=== PATIENT | male | born 1985 | race African-American/Black ===

== ENCOUNTER 2023-09-23 12:23 | Inpatient (IN) | payer BC, OTHER, SELFPAY ==
[2023-09-23] VITALS (25 sets, daily range): BP systolic 170–241; BP diastolic 51–119; PULSE 64–118; RESP 12–35; TEMP 36.8; O2SAT 95–100
--- NOTE | ~2023-09-23 | XR_ITS ---
EXAMINATION: XR chest 2V Exam Date/Time: 09/26/2023 12:30 CLASSIFIED ADVERTISING CLERK HISTORY: pneumonia Comparison: 09/23/2023. RESULT: Lines, tubes, and devices: None. Lungs and pleura: Clear, improved left lower lobe airspace disease. Cardiomediastinal silhouette: Stable. Other: No acute osseous or upper abdominal finding. IMPRESSION: No acute cardiopulmonary process. Improved left lower lobe airspace disease. Reviewed, dictated and finalized at location K. SIFIED ADVERTISING CLERK
--- NOTE | ~2023-09-23 | XR_ITS ---
EXAMINATION: XR chest 2V DATE: 09/28/2023 08:26 INDICATION: Pneumonia. TECHNIQUE: Frontal and lateral views of the chest were obtained. COMPARISON: Chest 2 views 09/26/2023 FINDINGS: A calcified left lung nodule is consistent with old granulomatous disease. No pleural effus ion or pneumothorax. The heart size is normal. IMPRESSION: 1. No acute cardiopulmonary disease. Reviewed, dictated and finalized at location A. MANAGER
--- NOTE | ~2023-09-23 | CT_ITS ---
EXAMINATION: CT brain wo con DATE: 09/23/2023 19:12 INDICATION: hypertension, headache . TECHNIQUE: Computed tomography (CT) of the head was performed without intravenous contrast. The mA wa s adjusted according to patient size. Iterative reconstruction technique was employed. The dose-lengt h product was 605.33 mGy-cm. COMPARISON: None. FINDINGS: No acute intracranial hemorrhage or extra-axial fluid collection. No hydrocephalus, mass, or herniation. No acute ischemic infarct. Unremarkable dural venous sinus attenuation. No acute osseous abnormality. The aerated spaces are clear. IMPRESSION: No acute intracranial process. Reviewed, dictated and finalized at location K. ESSFACTORS CONSULTANT
--- NOTE | ~2023-09-23 | XR_ITS ---
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 RESULT: Lines, tubes, and devices: None. Lungs and pleura: Low volumes with crowding, particularly in the lateral view. Left lower lobe airsp jose disease, silhouetting left hemidiaphragm. Cardiomediastinal silhouette: Stable. Other: No acute osseous or upper abdominal finding. IMPRESSION: Left lower lobe airspace disease, may reflect atelectasis, pneumonia or aspiration. Reviewed, dictated and finalized at location K. ON FORMING MACHINE OPERATOR IMPRESSION: Left lower lobe airspace disease, may reflect atelectasis, pneumonia or aspirat ion.
--- NOTE | ~2023-09-23 | US_ITS ---
EXAMINATION: US renal BI DATE: 09/28/2023 12:45 INDICATION: Hypocalcemia TECHNIQUE: Multiple grayscale and Doppler ultrasound images of the kidneys were obtained. COMPARISON: None. FINDINGS: The right kidney measures 10.1 x 5.3 x 6.2 cm. The left kidney measures 12.3 x 7.2 x 4.9 cm . The kidneys demonstrate normal parenchymal echogenicity. There is no hydronephrosis. The bladder is normal. IMPRESSION: 1. Normal kidneys without hydronephrosis. Reviewed, dictated and finalized at location B. GROUND CHECK COORDINATOR
[2023-09-23 13:03] LABS: Basophils Absolute Auto 0.1 K/mm3 (0.0-0.1); Basophils Percent Auto 0.5 % (0.2-1.2); Eosinophils Absolute Auto 0.1 K/mm3 (0-0.3); Eosinophils Percent Auto 0.5 % (0-4.4); Hematocrit 39.9 % (42.0-52.0); Hemoglobin 12.7 g/dL (14.0-18.0); Immature Granulocyte Absolute 0.02 K/mm3 (0.00-0.031); Immature Granulocyte Percent A 0.2 % (0-0.5); Lymphocytes Absolute Auto 2.54 K/mm3 (0.9-3.2); Mean Corpuscular HGB Conc 31.8 g/dl (32-36); Mean Corpuscular Hemoglobin 27.9 pg (26-34); Mean Corpuscular Volume 87.7 fl (80-100); Mean Platelet Volume 10.7 fl (7.4-10.4); Monocytes Percent Auto 10.6 % (2.6-8.5); Neutrophils Absolute Auto 6.1 K/mm3 (1.3-6.7); Neutrophils Percent Auto 62.2 % (45.5-73.1); Platelet Count Result 254 k/mm3 (150-375); Red Blood Count 4.55 M/mm3 (4.6-6.20); Red Cell Distribution Width 13.2 % (11.5-14.5); White Blood Count 9.8 K/mm3 (4.5-10.0)
[2023-09-23 13:15] LABS: Alanine Aminotransferase 38 U/L (6-50); Albumin Level 4.8 g/dL (3.5-5.1); Alkaline Phosphatase 111 U/L (38-126); Anion Gap 14 mmol/L (8-16); Aspartate Amino Transferase 66 U/L (17-59); Bilirubin,Total 1.2 mg/dL (0.2-1.3); Blood Urea Nitrogen 9 mg/dL (9-20); Carbon Dioxide 31 mmol/L (22-30); Chloride 94 mmol/L (98-107); Estimated CRCL calculation 89 ml/min; Estimated Glomerular Filt Rate > 60; Glucose 111 mg/dL (65-110); Potassium 3.4 mmol/L (3.4-5.0); Sodium 139 mmol/L (137-145)
--- NOTE | 2023-09-23 15:38 | PC.NURSE ---
Pt stating my chest is locking up im paining Pt taken to triage for an EKG
--- NOTE | 2023-09-23 15:40 | ECG_ITS ---
Measurements Intervals Pitcher Rate: 113 P: 46 [place]: 130 QRS: -23 QRSD: 82 T: 61 QT: 337 QTc: 463 Interpretive Statements SINUS TACHYCARDIA WITH OCCASIONAL VENTRICULAR PREMATURE COMPLEXES POSSIBLE LEFT ATRIAL ENLARGEMENT [-0.1mV P WAVE IN V1/V2] BORDERLINE LEFT AXIS DEVIATION [QRS AXIS < -20] ABNORMAL RHYTHM ECG NO PREVIOUS ECG AVAILABLE FOR COMPARISON Electronically Signed On 09-23-2023 17:32:51 [facility] A CLASS by Radha Severino M.D.
--- NOTE | 2023-09-23 15:47 | PC.NURSE ---
pt brought back to triage for EKG, pt not sitting still and pulled EKG leads off and refused to have test done. Pt placed back in waiting room and pt immediately started yelling nurse!! NURSE!! this rn spoke with pt. Pt is hyperventilating and yelling.
--- NOTE | 2023-09-23 16:00 | PC.NURSE ---
Pt yelling Nurse! nurse! as this RN was checking in another pt. pt seen sliding down wheelchair and placing himself on the floor. Security called and pt placed back in wheelchair and brought into triage
--- NOTE | 2023-09-23 16:27 | PC.NURSE ---
Pt hooked up to EKG and will not stop moving. Pt yelling that he is in pain. after approx 15 mins EKG was completed and pt was placed in the family services room
[2023-09-23 16:54] LABS: Magnesium 1.5 mg/dL (1.6-2.3)
[2023-09-23] MEDS: MAGNESIUM SULF 1 GM/D5W 100 ML 1 GM/100 ML BAG IVPB (17:38)
--- NOTE | 2023-09-23 17:41 | ED.GENADULT ---
HPI - General Adult General Chief complaint: Unspecified <Nunu Mccain PA-C - Last Filed: 09/23/23 20:30> Stated complaint: hands cramping <ZOLTAN Samuels Last Filed: 09/23/23 20:30> Time Seen by Provider: 09/23/23 17:16 <Nunu Mccain PA-C - Last Filed: 09/23/23 20:30> Source: patient <ZOLTAN Samuels Last Filed: 09/23/23 20:30> Mode of arrival: EMS <ZOLTAN Samuels Last Filed: 09/23/23 20:30> Limitations: no limitations <ZOLTAN Samuels Last Filed: 09/23/23 20:30> History of Present Illness HPI narrative: This is a 38 year old male that presents to the ER for carpal spasms today. Reports he was recently seen at another hospital for low potassium. He was picking up his prescription at the pharmacy when he started to have spasms in his hands. They are very painful. Also reports his blood pressure is elevated and he is dehydrated. Denies fever, chest pain, shortness of breath, cough, congestion, sore throat, abdominal pain, vomiting, or dysuria. <Nunu Mccain PA-C - Last Filed: 09/23/23 20:30> Related Data Home medications: Home Medications Medication Instructions Recorded Confirmed multivit with minerals-iron 18 1 tablet PO DAILY 09/23/23 09/23/23 mg-folic ac 400 mcg-vit K 25 mcg tablet (Adults Multivitamin) <ZOLTAN Samuels Last Filed: 09/23/23 20:30> Allergies/adverse reactions: Allergies Allergy/AdvReac Type Severity Reaction Status Date / Time No Known Allergies Allergy Verified 09/23/23 16:59 <ZOLTAN Samuels Last Filed: 09/23/23 20:30> Review of Systems Review of Systems: CONSTITUTIONAL: Denies fever ENT: Denies rhinorrhea, congestion, sore throat CARDIOVASCULAR: Denies chest pain, or edema. RESPIRATORY: Denies dyspnea. GASTROINTESTINAL: Denies abdominal pain, nausea, vomiting, or diarrhea. GENITOURINARY: Denies dysuria NEUROLOGIC: Denies numbness, or weakness. PSYCHIATRIC: Reports anxiety <Nunu Mccain PA-C - Last Filed: 09/23/23 20:30> All systems reviewed & are unremarkable except as noted in HPI and below <Nunu Mccain PA-C - Last Filed: 09/23/23 20:30> PMFSH Past Medical History Medical History: Medical History (Updated 09/24/23 @ 02:47 by Alva Tate MD) History of hypokalemia <Nunu Mccain PA-C - Last Filed: 09/23/23 20:30> Family History Family History: Family History (Updated 09/23/23 @ 21:49 by Olive Ruth RN) Mother Cancer <Nunu Mccain PA-C - Last Filed: 09/23/23 20:30> Social History Social History: Social History (Updated 09/23/23 @ 17:45 by Nunu Mccain PA-C) Alcohol intake: never Substance use: never Substance use type: does not use Lack of Transportation: No Lack of Food: Never True Current Housing: I Have Housing Concerned About Future Housing: No Difficulty Paying Gas/Electric Bills: No Difficulty Paying for Meds: No Currently Unemployed: No Education: Trade/Vocational Certificate Difficulty w/ Childcare or Family Care: No Spiritual care concerns: No <Nunu Mccain PA-C - Last Filed: 09/23/23 20:30> Exam Narrative: GENERAL: Well-appearing, well-nourished, and in no acute distress. HEAD: Normocephalic, atraumatic. EYES: PERRLA and EOMI. ENT: Nares clear, no rhinorrhea or epistaxis. Mucous membranes moist. Oropharynx without tonsillar hypertrophy exudate or other lesions. Bilateral TMs pearly hernandez non-bulging NECK: Supple. No adenopathy or masses. No JVD CHEST: Clear to auscultation. No respiratory distress. No wheezes rales or rhonchi HEART: Regular rate and rhythm. No murmur heard. Normal peripheral pulses. ABDOMEN: Soft, nontender, nondistended, normal active bowel sounds. EXTREMITIES: Spasms of the bilateral hands. No edema. SKIN: Warm, dry, no rash. NEURO: No focal deficits. Alert and oriented x3. PSYCH: Normal mood and affect <IMTIAZ Samuels-
[2023-09-23] MEDS: diazePAM INJ (*CRX) 10 MG/2 ML SYRINGE 5 MG IV PUSH (17:45)
[2023-09-23] MEDS: SODIUM CHLORIDE 0.9% IV 1,000 ML 999 ML IV CONT (17:45)
[2023-09-23] MEDS: ACETAMINOPHEN 500 MG TABLET 1000 MG PO (17:52)
[2023-09-23 18:12] LABS: Creatine Kinase 2579 U/L (55-170)
[2023-09-23 18:34] LABS: Influenza A QL RT-PCR Negative (Negative); Influenza B QL RT-PCR Negative (Negative); RSV RNA, RT-PCR Negative (Negative); SARS-CoV-2 RNA PCR Negative (Negative)
--- NOTE | 2023-09-23 19:12 | PC.NURSE ---
Assumed care of pt from RAJENDRA Posadas at this time.
[2023-09-23 19:37] LABS: Amphetamine Screen Urine Negative (Negative); Barbiturate Screen Urine Negative (Negative); Benzodiazepines Screen Urine Negative (Negative); Cannabinoid Screen Urine Negative (Negative); Cocaine Screen Urine Negative (Negative); Methadone Screen Urine Negative (Negative); Opiate Screen Urine Negative (Negative); Phencyclidine Screen Urine Negative (Negative)
[2023-09-23] MEDS: CALCIUM GLUC 1,000 MG/NS 50 ML 1,000 MG/50 ML BAG 100 MG IVPB (19:48)
[2023-09-23 20:01] LABS: Appearance Urine Clear (Clear); Bilirubin Urine Negative (Negative); Blood Urine 2+ (Negative); Color Urine Yellow (Yellow); Glucose Urine UA Negative (Negative); Ketones Urine Negative (Negative); Leukocyte Esterase Ur Negative LEU/UL (Negative); Nitrate Urine Negative (Negative); Protein Urine 1+ mg/dL (Negative); Urobilinogen Urine 0.2 mg/dL (<2.0)
[2023-09-23 20:07] LABS: Bacteria Urine None Seen /hpf; Non Pathogenic Casts 0-2; RBC Urine 0-2 /hpf (0-2); Specific Grav Ur 1.009 (1.001-1.035); Squamous Epithelial Cell Urine None seen /hpf (Few); WBC Urine 0-5 /hpf
[2023-09-23 20:12] LABS: Add Urine Microscopic? YES
--- NOTE | 2023-09-23 20:49 | PM.IMHP ---
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 A chest x-ray showed infiltrates EXAMINATION:? XR chest 2V Exam Date/Time:? 09/23/2023 17:58 CLIENT RELATIONS REPRESENTATIVE HISTORY: hypertension, postictal ? Comparison:? None. RESULT: Lines, tubes, and devices:? None. Lungs and pleura:? Low volumes with crowding, particularly in the lateral view. Left lower lobe airspace disease, silhouetting left hemidiaphragm. Cardiomediastinal silhouette:? Stable. Other:? No acute osseous or upper abdominal finding. ? IMPRESSION: Left lower lobe airspace disease, may reflect atelectasis, pneumonia or aspiration. EXAMINATION: CT brain wo con DATE: 09/23/2023 19:12 INDICATION: hypertension, headache . TECHNIQUE: Computed tomography (CT) of the head was performed without intravenous contrast. The mA was adjusted according to patient size. Iterative reconstruction technique was employed. The dose-length product was 605.33 mGy-cm. COMPARISON: None. FINDINGS: No acute intracranial hemorrhage or extra-axial fluid collection. No hydrocephalus, mass, or herniation. No acute ischemic infarct. Unremarkable dural venous sinus attenuation. No acute osseous abnormality. The? aerated spaces are clear. IMPRESSION:? No acute intracranial process. Review of Systems Review of Systems: Bilateral upper extremity the russell forearm and wrist Constitutional: Constitutional: Denies chills, Denies fever(s), Denies malaise, Denies night sweats, Denies poor appetite and Denies weakness Eyes: Eyes: Denies change in vision ENT: Denies dysphagia and Denies odynophagia Cardiovascular: Cardiovascular: Denies chest pain, Denies radiating jaw, neck or arm pain and Denies palpitations Respiratory: Respiratory: Denies chest congestion, Denies cough and Denies dyspnea Gastrointestinal: Gastrointestinal: Denies abdominal pain, Denies diarrhea, Denies nausea and Denies vomiting Genitourinary: Genitourinary: Denies dysuria Musculoskeletal: Musculoskeletal: Reports muscle cramps Integumentary/Breasts: Skin/Breast: Denies rash Neurologic: Denies focal weakness and Denies Sensory deficit (Neuro) Psychiatric: Psychiatric: Reports no additional psychiatric complaints and Reports as per HPI Endocrine: Endocrine: Denies cold intolerance, Denies fatigue, Denies flushing, Denies heat intolerance, Denies polyphagia, Denies polydipsia and Denies palpitations Hematologic/Lymphatic: Hematologic/Lymphatic: Reports no additional hematologic/lymphatic complaints and Reports as per HPI Allergic/Immunologic: Allergic/Immunologic: Reports no additional allergic/immunologic complaints and Reports as per HPI PMFSH Past Medical History Medical History (Updated 09/24/23 @ 02:47 by Alva Tate MD) History of hypokalemia Family History Family History (Updated 09/23/23 @ 21:49 by Olive Ruth RN) Mother Cancer Social History Social History (Updated 09/23/23 @ 17:45 by Nunu Mccain PA-C) Alcohol intake: never Substance use: never Substance use type: does not use Lack of Transportation: No Lack of Food: Never True Current Housing: I Have Housing Concerned About Future Housing: No Difficulty Paying Gas/Electric Bills: No Difficulty Paying for Meds: No Currently Unemployed: No Education: Trade/Vocational Certificate Difficulty w/ Childcare or Fami
--- NOTE | 2023-09-23 21:39 | ADMGEN ---
This patient, Connie Crocker, was admitted to Medical Room 252-. Patient/family oriented to hospital policies and general routines including ID bracelet, bed and alarms, visiting hours, pain management, procedures, bathroom and other care routines, personal items, smoking policy, room service/diet, and visiting hours. Information on how to activate the Rapid Response Team has been discussed. Patient/Family are encouraged to report perceived risks to care and to ask questions if they do not understand what they are told or what they should do.
[2023-09-23] MEDS: SODIUM CHLORIDE 0.9% IV 1,000 ML 125 ML IV CONT (22:06)
[2023-09-24] VITALS (12 sets, daily range): BP systolic 162–175; BP diastolic 53–98; PULSE 45–78; RESP 14–18; TEMP 36.4–37.1; O2SAT 98–100
[2023-09-24] MEDS: cefTRIAXone 2 GM/NS 100 ML 2 GM/100 ML BAG IVPB (03:31)
[2023-09-24] MEDS: AZITHROMYCIN 500 MG/NS 250 ML 500 MG/250 ML BAG 250 MG IVPB (04:23)
[2023-09-24] MEDS: ACETAMINOPHEN 500 MG TABLET 1000 MG PO (04:26)
[2023-09-24 06:34] LABS: Basophils Percent Auto 0.3 % (0.2-1.2); Eosinophils Absolute Auto 0.1 K/mm3 (0-0.3); Eosinophils Percent Auto 0.5 % (0-4.4); Hematocrit 41.2 % (42.0-52.0); Hemoglobin 13.1 g/dL (14.0-18.0); Immature Granulocyte Absolute 0.02 K/mm3 (0.00-0.031); Immature Granulocyte Percent A 0.2 % (0-0.5); Lymphocytes Absolute Auto 2.06 K/mm3 (0.9-3.2); Mean Corpuscular HGB Conc 31.8 g/dl (32-36); Mean Corpuscular Hemoglobin 27.9 pg (26-34); Mean Corpuscular Volume 87.7 fl (80-100); Mean Platelet Volume 11.4 fl (7.4-10.4); Monocytes Absolute Auto 0.6 K/mm3 (0.1-0.6); Monocytes Percent Auto 5.9 % (2.6-8.5); Neutrophils Absolute Auto 7.1 K/mm3 (1.3-6.7); Neutrophils Percent Auto 72.1 % (45.5-73.1); Platelet Count Result 230 k/mm3 (150-375); Red Cell Distribution Width 13.1 % (11.5-14.5); White Blood Count 9.8 K/mm3 (4.5-10.0)
[2023-09-24 06:51] LABS: Alanine Aminotransferase 75 U/L (6-50); Albumin Level 4.7 g/dL (3.5-5.1); Alkaline Phosphatase 122 U/L (38-126); Anion Gap 10 mmol/L (8-16); Aspartate Amino Transferase 380 U/L (17-59); Bilirubin,Total 1.5 mg/dL (0.2-1.3); Blood Urea Nitrogen 9 mg/dL (9-20); Carbon Dioxide 33 mmol/L (22-30); Chloride 101 mmol/L (98-107); Estimated CRCL calculation 106 ml/min; Estimated Glomerular Filt Rate > 60; Glucose 83 mg/dL (65-110); Magnesium 1.4 mg/dL (1.6-2.3); Phosphorus 4.3 mg/dL (2.5-4.5); Potassium 2.9 mmol/L (3.4-5.0); Sodium 144 mmol/L (137-145)
[2023-09-24] MEDS: SODIUM CHLORIDE 0.9% IV 1,000 ML 125 ML IV CONT ×2 (07:15→20:45)
[2023-09-24] MEDS: MAGNESIUM SULF 4 GM/WATER100ML 4 GM/100 ML BAG IVPB (09:13)
[2023-09-24] MEDS: POTASSIUM CHLORIDE INJ 40 MEQ in SODIUM CHLORIDE 0.9% IV 500 ML 130 MEQ IVPB (10:22)
--- NOTE | 2023-09-24 10:55 | PC.NURSE ---
On 09/24/23, the student, [Negin Brush], provided care and completed [facility] documentation on this patient. I have reviewed the student's documentation and agree with the findings.
[2023-09-24 14:02] LABS: Creatine Kinase 15703 U/L (55-170)
[2023-09-24] MEDS: METOPROLOL TARTRATE 50 MG TAB PO (14:58)
--- NOTE | 2023-09-24 16:56 | PM.IMPN ---
Progress Note: A&P Assessment and Plan (1) Lung infiltrate: Code(s): R91.8 - Other nonspecific abnormal finding of lung field Status: Acute (2) Rhabdomyolysis: Qualifiers: Rhabdomyolysis type: non-traumatic Qualified Code(s): M62.82 - Rhabdomyolysis Code(s): M62.82 - Rhabdomyolysis Status: Acute (3) Hypocalcemia: Code(s): E83.51 - Hypocalcemia Status: Acute (4) Hypomagnesemia: Code(s): E83.42 - Hypomagnesemia Status: Acute (5) Hypertension: Qualifiers: Hypertension type: unspecified Qualified Code(s): I10 - Essential (primary) hypertension Code(s): I10 - Essential (primary) hypertension Status: Acute (6) Electrolyte imbalance: Code(s): E87.8 - Other disorders of electrolyte and fluid balance, not elsewhere classified Status: Acute Plan Continue with current medications Continue with IV hydration with normal saline at 125 cc/hour Strict input and output monitoring Renal function slowly improving with IV hydration Patient's CK level jumped from 2579 to 23871! Monitor CK level closely Patient has the myoglobin urea showing up as false hematuria on urine analysis His liver functions are slowly uptrending as well Aggressive electrolyte replacement ordered for hypomagnesemia and hypokalemia Consider Nephrology and GI consultations in am if his enzymes failed to down trend Continue with IV antibiotics for pneumonia Follow-up on blood and sputum cultures ? Patient seen and examined at bedside during my morning rounds ? Collaborated with patient's nurse at the bedside in detail and addressed all concerns ? Labs, electrolytes, radiology, investigations and test results reviewed ? Consult/Nursing/Ancilliary notes on the chart reviewed and appreciated ? Spoke with patient/family at the bedside and answered all the questions that they had Repeat labs in a.m. Electrolyte replacement as per protocol. Patient will be monitored very closely on the floor. Further recommendations as per the hospital course. Time Spent With Patient Time with patient: 25 - 35 minutes Subjective Date/time seen: 09/24/23 16:56 Interval history: Patient seen and evaluated at bedside. Still feels tired and fatigued. Complains of muscular pains in his upper and lower extremities. Review of Systems Review of Systems: 14 systems were reviewed with pertinent positives and negatives per HPI. Except as documented in the HPI/progress notes, all other systems were reviewed and are negative. Exam Narrative: PHYSICAL EXAMINATION: Vital signs: Please see the chart General physical exam: Patient lying in bed, appears to be tired and fatigued, complains of generalized muscle pains Head/eyes: Atraumatic, EOMI, PERRLA ENT: Moist mucous membranes, nasal passages clear Neck: Supple, full range of motion, trachea midline CVS: S1 + S2, regular rate and rhythm, no murmurs Respiratory: Bilaterally fair air entry in both lung tabares, mild B/L crackles, symmetric chest expansion, no distress Abdomen: Soft, non-tender, bowel sounds +ve, no organomegaly Extremities: No clubbing, no cyanosis, no edema, no calf tenderness Musculoskeletal: Moves all, adequate range of motion, generalized mild-moderate muscle tenderness, + mild muscle spasms Skin: Warm, dry, no jaundice, no cyanosis Neurological: Awake, alert, oriented x 3, cranial nerves II-XII intact, no focal neurological deficits Psychiatric: Normal mood, non suicidal Objective Data Vital Signs Vital Signs: Vital Signs - 24 hr 09/23/23 16:59 09/23/23 17:01 09/23/23 17:01 Temperature Pulse Rate 99 100 Respiratory Rate 26 H 30 H Blood Pressure 194/119 H 194/119 H Pulse Oximetry 98 Oxygen Delivery 09/23/23 17:02 09/23/23 17:15 09/23/23 17:18 Temperature Pulse Rate 100 102 H 114 H Respiratory Rate 32 H 31 H 35 H Blood Pressure 212/96 H Pulse Oximetry Oxygen Delivery
[2023-09-24] MEDS: POTASSIUM CHLORIDE 20 MEQ ER TABLET 40 MEQ PO (17:34)
[2023-09-25] VITALS (11 sets, daily range): BP systolic 150–163; BP diastolic 90–97; PULSE 51–70; RESP 16–18; TEMP 36.5–36.8; O2SAT 100
[2023-09-25] MEDS: cefTRIAXone 2 GM/NS 100 ML 2 GM/100 ML BAG IVPB (04:48)
[2023-09-25] MEDS: AZITHROMYCIN 500 MG/NS 250 ML 500 MG/250 ML BAG 250 MG IVPB (05:22)
[2023-09-25] MEDS: SODIUM CHLORIDE 0.9% IV 1,000 ML 125 ML IV CONT ×2 (05:23→22:17)
[2023-09-25 05:56] LABS: Basophils Absolute Auto 0.1 K/mm3 (0.0-0.1); Basophils Percent Auto 0.8 % (0.2-1.2); Eosinophils Absolute Auto 0.1 K/mm3 (0-0.3); Eosinophils Percent Auto 2.1 % (0-4.4); Hematocrit 39.8 % (42.0-52.0); Hemoglobin 12.5 g/dL (14.0-18.0); Immature Granulocyte Absolute 0.02 K/mm3 (0.00-0.031); Immature Granulocyte Percent A 0.3 % (0-0.5); Lymphocytes Absolute Auto 1.93 K/mm3 (0.9-3.2); Lymphocytes Percent Auto 31.9 % (18.3-44.2); Mean Corpuscular HGB Conc 31.4 g/dl (32-36); Mean Corpuscular Hemoglobin 27.7 pg (26-34); Mean Corpuscular Volume 88.1 fl (80-100); Monocytes Absolute Auto 0.6 K/mm3 (0.1-0.6); Monocytes Percent Auto 9.6 % (2.6-8.5); Neutrophils Absolute Auto 3.3 K/mm3 (1.3-6.7); Neutrophils Percent Auto 55.3 % (45.5-73.1); Platelet Count Result 230 k/mm3 (150-375); Red Blood Count 4.52 M/mm3 (4.6-6.20); Red Cell Distribution Width 13.2 % (11.5-14.5); White Blood Count 6.1 K/mm3 (4.5-10.0)
[2023-09-25 06:27] LABS: Alanine Aminotransferase 87 U/L (6-50); Albumin Level 4.3 g/dL (3.5-5.1); Alkaline Phosphatase 108 U/L (38-126); Anion Gap 10 mmol/L (8-16); Aspartate Amino Transferase 288 U/L (17-59); Bilirubin,Total 1.3 mg/dL (0.2-1.3); Blood Urea Nitrogen 9 mg/dL (9-20); Carbon Dioxide 31 mmol/L (22-30); Chloride 103 mmol/L (98-107); Estimated CRCL calculation 117 ml/min; Estimated Glomerular Filt Rate > 60; Glucose 80 mg/dL (65-110); Magnesium 1.5 mg/dL (1.6-2.3); Phosphorus 4.3 mg/dL (2.5-4.5); Potassium 2.9 mmol/L (3.4-5.0); Sodium 144 mmol/L (137-145)
[2023-09-25 07:00] LABS: Creatine Kinase 14531 U/L (55-170)
[2023-09-25] MEDS: MAGNESIUM SULF 4 GM/WATER100ML 4 GM/100 ML BAG IVPB (08:14)
[2023-09-25] MEDS: MAGNESIUM OXIDE 400 MG TABLET PO ×2 (08:15→17:18)
[2023-09-25] MEDS: POTASSIUM CHLORIDE 20 MEQ ER TABLET 40 MEQ PO ×2 (08:15→17:18)
[2023-09-25] MEDS: POTASSIUM CHLORIDE INJ 40 MEQ in SODIUM CHLORIDE 0.9% IV 500 ML 130 MEQ IVPB (09:38)
--- NOTE | 2023-09-25 11:11 | PM.IMPN ---
Progress Note: A&P Assessment and Plan (1) Lung infiltrate: Code(s): R91.8 - Other nonspecific abnormal finding of lung field Status: Acute (2) Rhabdomyolysis: Qualifiers: Rhabdomyolysis type: non-traumatic Qualified Code(s): M62.82 - Rhabdomyolysis Code(s): M62.82 - Rhabdomyolysis Status: Acute (3) Hypocalcemia: Code(s): E83.51 - Hypocalcemia Status: Acute (4) Hypomagnesemia: Code(s): E83.42 - Hypomagnesemia Status: Acute (5) Hypertension: Qualifiers: Hypertension type: unspecified Qualified Code(s): I10 - Essential (primary) hypertension Code(s): I10 - Essential (primary) hypertension Status: Acute (6) Electrolyte imbalance: Code(s): E87.8 - Other disorders of electrolyte and fluid balance, not elsewhere classified Status: Acute Plan Continue with current medications Continue with IV hydration with normal saline at 125 cc/hour Strict input and output monitoring Renal function slowly improving with IV hydration Patient's [place] started [place] [address] to [address] today! Monitor CK level closely Patient has the myoglobinurea showing up as false hematuria on urine analysis His liver functions are starting to downtrend as well Aggressive electrolyte replacement ordered for hypomagnesemia and hypokalemia which were low at the 1.5 and 2.9 today respectively Continue with IV antibiotics for pneumonia in the form of IV Rocephin and Zithromax ... Day#2 Follow-up on blood and sputum cultures ? Patient seen and examined at bedside during my morning rounds ? Collaborated with patient's nurse at the bedside in detail and addressed all concerns ? Labs, electrolytes, radiology, investigations and test results reviewed ? Consult/Nursing/Ancilliary notes on the chart reviewed and appreciated ? Spoke with patient/family at the bedside and answered all the questions that they had Repeat labs in a.m. Electrolyte replacement as per protocol. Patient will be monitored very closely on the floor. Further recommendations as per the hospital course. I am signing off. Patient's medical care will be taken over by my covering hospitalist attending in am. Subjective Date/time seen: 09/25/23 11:11 Interval history: Patient sitting on side of bed during my morning rounds having had formed in place. He is feeling a little better. Still complains of aches and pains in his muscles, but he has now started using hands more freely now. Review of Systems Review of Systems: 14 systems were reviewed with pertinent positives and negatives per HPI. Except as documented in the HPI/progress notes, all other systems were reviewed and are negative. Exam Narrative: PHYSICAL EXAMINATION: Vital signs: Please see the chart General physical exam: Patient lying in bed, appears to be tired and fatigued, complains of generalized muscle pains Head/eyes: Atraumatic, EOMI, PERRLA ENT: Moist mucous membranes, nasal passages clear Neck: Supple, full range of motion, trachea midline CVS: S1 + S2, regular rate and rhythm, no murmurs Respiratory: Bilaterally fair air entry in both lung tabares, mild B/L crackles, symmetric chest expansion, no distress Abdomen: Soft, non-tender, bowel sounds +ve, no organomegaly Extremities: No clubbing, no cyanosis, no edema, no calf tenderness Musculoskeletal: Moves all, adequate range of motion, generalized mild-moderate muscle tenderness, + mild muscle spasms Skin: Warm, dry, no jaundice, no cyanosis Neurological: Awake, alert, oriented x 3, cranial nerves II-XII intact, no focal neurological deficits Psychiatric: Normal mood, non suicidal Objective Data Vital Signs Vital Signs: Vital Signs - 24 hr 09/24/23 12:04 09/24/23 14:17 09/24/23 14:58 Temperature 37.1 C Pulse Rate 78 68 72 Respiratory Rate 16 Blood Pressure 175/53 H Pulse Oximetry 98 Oxygen Delivery 09/24/23 16:00 09/24/23 22:00
--- NOTE | 2023-09-25 11:44 | PC.NURSE ---
Contacted Montserrat Gomes regarding concerns patient has. Montserrat to come speak with patient
[2023-09-26] VITALS (13 sets, daily range): BP systolic 152–170; BP diastolic 90–98; PULSE 53–92; RESP 17–18; TEMP 36.4–36.9; O2SAT 100
[2023-09-26] MEDS: cefTRIAXone 2 GM/NS 100 ML 2 GM/100 ML BAG IVPB (03:02)
[2023-09-26] MEDS: AZITHROMYCIN 500 MG/NS 250 ML 500 MG/250 ML BAG 250 MG IVPB (03:32)
[2023-09-26 05:49] LABS: Basophils Absolute Auto 0.1 K/mm3 (0.0-0.1); Basophils Percent Auto 0.8 % (0.2-1.2); Eosinophils Absolute Auto 0.1 K/mm3 (0-0.3); Hematocrit 41.2 % (42.0-52.0); Hemoglobin 12.9 g/dL (14.0-18.0); Immature Granulocyte Absolute 0.01 K/mm3 (0.00-0.031); Immature Granulocyte Percent A 0.2 % (0-0.5); Lymphocytes Absolute Auto 1.77 K/mm3 (0.9-3.2); Lymphocytes Percent Auto 27.6 % (18.3-44.2); Mean Corpuscular HGB Conc 31.3 g/dl (32-36); Mean Corpuscular Hemoglobin 27.7 pg (26-34); Mean Corpuscular Volume 88.4 fl (80-100); Mean Platelet Volume 10.8 fl (7.4-10.4); Monocytes Absolute Auto 0.6 K/mm3 (0.1-0.6); Monocytes Percent Auto 8.9 % (2.6-8.5); Neutrophils Absolute Auto 3.9 K/mm3 (1.3-6.7); Neutrophils Percent Auto 60.5 % (45.5-73.1); Platelet Count Result 223 k/mm3 (150-375); Red Blood Count 4.66 M/mm3 (4.6-6.20); White Blood Count 6.4 K/mm3 (4.5-10.0)
[2023-09-26 06:44] LABS: Alanine Aminotransferase 83 U/L (6-50); Albumin Level 4.1 g/dL (3.5-5.1); Alkaline Phosphatase 109 U/L (38-126); Anion Gap 9 mmol/L (8-16); Aspartate Amino Transferase 173 U/L (17-59); Blood Urea Nitrogen 8 mg/dL (9-20); Calcium 6.4 mg/dL (8.4-10.2); Carbon Dioxide 30 mmol/L (22-30); Chloride 104 mmol/L (98-107); Estimated CRCL calculation 117 ml/min; Estimated Glomerular Filt Rate > 60; Glucose 87 mg/dL (65-110); Magnesium 1.4 mg/dL (1.6-2.3); Sodium 143 mmol/L (137-145)
[2023-09-26] MEDS: SODIUM CHLORIDE 0.9% IV 1,000 ML 125 ML IV CONT (08:39)
[2023-09-26] MEDS: MAGNESIUM OXIDE 400 MG TABLET PO ×2 (08:40→17:27)
[2023-09-26] MEDS: POTASSIUM CHLORIDE 20 MEQ ER TABLET 40 MEQ PO ×2 (08:40→12:14)
--- NOTE | 2023-09-26 08:40 | PC.NURSE ---
Spoke with Markie in pharmacy to let him know I am unable to place order for IVPB potassium per Dr. Gerard. When attempting to order it, will not let me order correct dose. Markie let me know that it is probably because patient has already been given same medication recently, would like me to place pharmacy communication so that he can order it on his end.
[2023-09-26 08:51] LABS: Creatine Kinase 8990 U/L (55-170)
[2023-09-26] MEDS: MAGNESIUM SULF 2 GM/WATER 50ML 2 GM/50 ML BAG IVPB (10:38)
--- NOTE | 2023-09-26 12:03 | PM.IMPN ---
Progress Note: A&P Assessment and Plan (1) Lung infiltrate: Code(s): R91.8 - Other nonspecific abnormal finding of lung field Status: Acute Assessment and Plan: Continue with IV antibiotics. Repeat chest x-ray. Monitor blood culture. (2) Rhabdomyolysis: Qualifiers: Rhabdomyolysis type: non-traumatic Qualified Code(s): M62.82 - Rhabdomyolysis Code(s): M62.82 - Rhabdomyolysis Status: Acute Assessment and Plan: CPK improving, continue current treatment. (3) Hypocalcemia: Code(s): E83.51 - Hypocalcemia Status: Acute Assessment and Plan: Better , monitor closely. (4) Hypomagnesemia: Code(s): E83.42 - Hypomagnesemia Status: Acute Assessment and Plan: Replace and monitor. (5) Hypertension: Qualifiers: Hypertension type: unspecified Qualified Code(s): I10 - Essential (primary) hypertension Code(s): I10 - Essential (primary) hypertension Status: Acute Assessment and Plan: Stable (6) Electrolyte imbalance: Code(s): E87.8 - Other disorders of electrolyte and fluid balance, not elsewhere classified Status: Acute Assessment and Plan: Getting better and monitor closely. Plan Continue with current medications Continue with IV hydration with normal saline at 125 cc/hour Strict input and output monitoring Renal function slowly improving with IV hydration Patient[place] [address] [place] [address] today! Monitor CK level closely Patient has the myoglobinuria showing up as false hematuria on urine analysis Repeat labs in a.m. Electrolyte replacement as per protocol. Patient will be monitored very closely on the floor. Further recommendations as per the hospital course. Subjective Date/time seen: 09/26/23 12:03 Interval history: Patient was seen during the morning rounds today. Patient breathing is better. Decreased shortness of breath. No chest pain. No abdominal pain. No nausea no vomiting. Mood stable. Review of Systems Review of Systems: 14 systems were reviewed with pertinent positives and negatives per HPI. Except as documented in the HPI/progress notes, all other systems were reviewed and are negative. Constitutional: Constitutional: Denies chills, Denies fatigue, Denies fever(s), Denies malaise, Denies night sweats, Denies poor appetite and Denies weakness Eyes: Eyes: Denies change in vision ENT: Denies dysphagia and Denies odynophagia Cardiovascular: Cardiovascular: Denies chest pain, Denies radiating jaw, neck or arm pain, Denies palpitations and Denies dyspnea Respiratory: Respiratory: Denies chest congestion, Denies cough and Denies dyspnea Gastrointestinal: Gastrointestinal: Denies abdominal pain, Denies dysphagia, Denies diarrhea, Denies nausea, Denies odynophagia and Denies vomiting Genitourinary: Genitourinary: Denies dysuria Musculoskeletal: Musculoskeletal: Reports muscle cramps Integumentary/Breasts: Skin/Breast: Denies rash Neurologic: Denies focal weakness, Denies Sensory deficit (Neuro) and Denies weakness Psychiatric: Psychiatric: Reports no additional psychiatric complaints and Reports as per HPI Endocrine: Endocrine: Denies cold intolerance, Denies fatigue, Denies flushing, Denies heat intolerance, Denies polyphagia, Denies polydipsia and Denies palpitations Hematologic/Lymphatic: Hematologic/Lymphatic: Reports no additional hematologic/lymphatic complaints and Reports as per HPI Allergic/Immunologic: Allergic/Immunologic: Reports no additional allergic/immunologic complaints and Reports as per HPI Exam Narrative: PHYSICAL EXAMINATION: Vital signs: Please see the chart General physical exam: Patient lying in bed, appears to be tired and fatigued, complains of generalized muscle pains Head/eyes: Atraumatic, EOMI, PERRLA ENT: Moist mucous membranes, nasal passages clear Neck: Supple, full range of motion, trachea
[2023-09-26] MEDS: POTASSIUM CHLORIDE INJ 40 MEQ in SODIUM CHLORIDE 0.9% IV 500 ML 130 MEQ IVPB (12:14)
[2023-09-26] MEDS: hydrALAZINE HCL 20 MG/ML VIAL 10 MG IV PUSH (14:54)
--- NOTE | 2023-09-26 17:15 | PC.NURSE ---
Patient had timed potassium to be drawn at 1630. Has not yet been drawn. Sales Clerk [employer] states she is coming up to draw it soon
[2023-09-26] MEDS: LOSARTAN POTASSIUM 50 MG TABLET PO (17:27)
--- NOTE | 2023-09-26 18:34 | PC.NURSE ---
Called log brander again and did not get an answer regarding potassium.
[2023-09-26 19:06] LABS: Potassium 3.2 mmol/L (3.4-5.0)
[2023-09-27] VITALS (10 sets, daily range): BP systolic 144–164; BP diastolic 85–94; PULSE 56–81; RESP 13–18; TEMP 36.3–36.7; O2SAT 99–100
[2023-09-27] MEDS: CYCLOBENZAPRINE HCL 10 MG TABLET PO
[2023-09-27] MEDS: cefTRIAXone 2 GM/NS 100 ML 2 GM/100 ML BAG IVPB (05:29)
[2023-09-27] MEDS: AZITHROMYCIN 500 MG/NS 250 ML 500 MG/250 ML BAG 250 MG IVPB (06:00)
[2023-09-27 06:06] LABS: Basophils Absolute Auto 0.1 K/mm3 (0.0-0.1); Basophils Percent Auto 0.9 % (0.2-1.2); Eosinophils Absolute Auto 0.2 K/mm3 (0-0.3); Eosinophils Percent Auto 2.4 % (0-4.4); Hematocrit 42.2 % (42.0-52.0); Hemoglobin 13.7 g/dL (14.0-18.0); Immature Granulocyte Absolute 0.02 K/mm3 (0.00-0.031); Immature Granulocyte Percent A 0.3 % (0-0.5); Lymphocytes Percent Auto 34.5 % (18.3-44.2); Mean Corpuscular HGB Conc 32.5 g/dl (32-36); Mean Corpuscular Hemoglobin 28.2 pg (26-34); Mean Platelet Volume 10.8 fl (7.4-10.4); Monocytes Absolute Auto 0.5 K/mm3 (0.1-0.6); Monocytes Percent Auto 7.1 % (2.6-8.5); Neutrophils Absolute Auto 3.5 K/mm3 (1.3-6.7); Neutrophils Percent Auto 54.8 % (45.5-73.1); Platelet Count Result 252 k/mm3 (150-375); Red Blood Count 4.85 M/mm3 (4.6-6.20); Red Cell Distribution Width 12.7 % (11.5-14.5); White Blood Count 6.4 K/mm3 (4.5-10.0)
[2023-09-27 07:12] LABS: Alanine Aminotransferase 82 U/L (6-50); Albumin Level 4.5 g/dL (3.5-5.1); Alkaline Phosphatase 112 U/L (38-126); Anion Gap 8 mmol/L (8-16); Aspartate Amino Transferase 116 U/L (17-59); Bilirubin,Total 1.2 mg/dL (0.2-1.3); Blood Urea Nitrogen 8 mg/dL (9-20); Calcium 6.6 mg/dL (8.4-10.2); Carbon Dioxide 31 mmol/L (22-30); Chloride 104 mmol/L (98-107); Creatine Kinase 4984 U/L (55-170); Estimated CRCL calculation 130 ml/min; Estimated Glomerular Filt Rate > 60; Glucose 88 mg/dL (65-110); Magnesium 1.3 mg/dL (1.6-2.3); Sodium 143 mmol/L (137-145)
--- NOTE | 2023-09-27 09:35 | PM.IMPN ---
Progress Note: A&P Assessment and Plan (1) Lung infiltrate: Code(s): R91.8 - Other nonspecific abnormal finding of lung field Status: Acute Assessment and Plan: Continue with IV antibiotics. Repeat chest x-ray. Monitor blood culture. (2) Rhabdomyolysis: Qualifiers: Rhabdomyolysis type: non-traumatic Qualified Code(s): M62.82 - Rhabdomyolysis Code(s): M62.82 - Rhabdomyolysis Status: Acute Assessment and Plan: CPK improving, continue current treatment. (3) Hypocalcemia: Code(s): E83.51 - Hypocalcemia Status: Acute Assessment and Plan: Better , monitor closely. (4) Hypomagnesemia: Code(s): E83.42 - Hypomagnesemia Status: Acute Assessment and Plan: Replace and monitor. (5) Hypertension: Qualifiers: Hypertension type: unspecified Qualified Code(s): I10 - Essential (primary) hypertension Code(s): I10 - Essential (primary) hypertension Status: Acute Assessment and Plan: Stable (6) Electrolyte imbalance: Code(s): E87.8 - Other disorders of electrolyte and fluid balance, not elsewhere classified Status: Acute Assessment and Plan: Getting better and monitor closely. Plan Continue with current medications Continue with IV hydration with normal saline at 125 cc/hour Strict input and output monitoring Renal function slowly improving with IV hydration [place] [address] [place] [address] today! Monitor CK level closely Patient has the myoglobinuria showing up as false hematuria on urine analysis Repeat labs in a.m. Electrolyte replacement as per protocol. Patient will be monitored very closely on the floor. Further recommendations as per the hospital course. Subjective Date/time seen: 09/27/23 09:35 Interval history: Patient was seen during the morning rounds today. No new overnight complaints. Patient breathing is better. Decreased shortness of breath. No chest pain. No abdominal pain. No nausea no vomiting. Mood stable. Review of Systems Review of Systems: 14 systems were reviewed with pertinent positives and negatives per HPI. Except as documented in the HPI/progress notes, all other systems were reviewed and are negative. Constitutional: Constitutional: Denies chills, Denies fatigue, Denies fever(s), Denies malaise, Denies night sweats, Denies poor appetite and Denies weakness Eyes: Eyes: Denies change in vision ENT: Denies dysphagia and Denies odynophagia Cardiovascular: Cardiovascular: Denies chest pain, Denies radiating jaw, neck or arm pain, Denies palpitations and Denies dyspnea Respiratory: Respiratory: Denies chest congestion, Denies cough and Denies dyspnea Gastrointestinal: Gastrointestinal: Denies abdominal pain, Denies dysphagia, Denies diarrhea, Denies nausea, Denies odynophagia and Denies vomiting Genitourinary: Genitourinary: Denies dysuria Musculoskeletal: Musculoskeletal: Reports muscle cramps Integumentary/Breasts: Skin/Breast: Denies rash Neurologic: Denies focal weakness, Denies Sensory deficit (Neuro) and Denies weakness Psychiatric: Psychiatric: Reports no additional psychiatric complaints and Reports as per HPI Endocrine: Endocrine: Denies cold intolerance, Denies fatigue, Denies flushing, Denies heat intolerance, Denies polyphagia, Denies polydipsia and Denies palpitations Hematologic/Lymphatic: Hematologic/Lymphatic: Reports no additional hematologic/lymphatic complaints and Reports as per HPI Allergic/Immunologic: Allergic/Immunologic: Reports no additional allergic/immunologic complaints and Reports as per HPI Exam Narrative: PHYSICAL EXAMINATION: Vital signs: Please see the chart General physical exam: Patient lying in bed, appears to be tired and fatigued, complains of generalized muscle pains Head/eyes: Atraumatic, EOMI, PERRLA ENT: Moist mucous membranes, nasal passages clear Neck: Supple,
[2023-09-27] MEDS: MAGNESIUM SULF 1 GM/D5W 100 ML 1 GM/100 ML BAG IVPB (09:46)
[2023-09-27] MEDS: LOSARTAN POTASSIUM 50 MG TABLET PO (09:46)
[2023-09-27] MEDS: MAGNESIUM OXIDE 400 MG TABLET PO ×2 (09:46→18:10)
[2023-09-27] MEDS: ENOXAPARIN 40 MG/0.4 ML SYRINGE SUB-Q (09:46)
[2023-09-27] MEDS: POTASSIUM CHLORIDE 20 MEQ ER TABLET 40 MEQ PO (09:49)
[2023-09-27] MEDS: POTASSIUM CHLORIDE INJ 40 MEQ in SODIUM CHLORIDE 0.9% IV 500 ML 130 MEQ IVPB (10:52)
[2023-09-27] MEDS: SODIUM CHLORIDE 0.9% IV 1,000 ML 125 ML IV CONT ×2 (10:52)
[2023-09-28] VITALS (8 sets, daily range): BP systolic 143–155; BP diastolic 81–93; PULSE 57–70; RESP 16–18; TEMP 36–36.7; O2SAT 100
[2023-09-28] MEDS: SODIUM CHLORIDE 0.9% IV 1,000 ML 125 ML IV CONT ×3 (03:30→22:01)
[2023-09-28] MEDS: cefTRIAXone 2 GM/NS 100 ML 2 GM/100 ML BAG IVPB (03:30)
[2023-09-28] MEDS: AZITHROMYCIN 500 MG/NS 250 ML 500 MG/250 ML BAG 250 MG IVPB (04:00)
[2023-09-28 05:54] LABS: Alanine Aminotransferase 73 U/L (6-50); Albumin Level 4.3 g/dL (3.5-5.1); Alkaline Phosphatase 107 U/L (38-126); Aspartate Amino Transferase 78 U/L (17-59); Blood Urea Nitrogen 7 mg/dL (9-20)
[2023-09-28 05:55] LABS: Anion Gap 9 mmol/L (8-16); Bilirubin,Total 0.9 mg/dL (0.2-1.3); Calcium 6.3 mg/dL (8.4-10.2); Carbon Dioxide 30 mmol/L (22-30); Chloride 102 mmol/L (98-107); Estimated CRCL calculation 130 ml/min; Estimated Glomerular Filt Rate > 60; Glucose 89 mg/dL (65-110); Magnesium 1.3 mg/dL (1.6-2.3); Potassium 3.1 mmol/L (3.4-5.0); Sodium 141 mmol/L (137-145)
[2023-09-28 06:31] LABS: Creatine Kinase 2584 U/L (55-170)
[2023-09-28] MEDS: ENOXAPARIN 40 MG/0.4 ML SYRINGE SUB-Q (08:33)
[2023-09-28] MEDS: POTASSIUM CHLORIDE 20 MEQ ER TABLET 40 MEQ PO (08:33)
[2023-09-28] MEDS: MAGNESIUM OXIDE 400 MG TABLET PO ×2 (08:34→16:29)
[2023-09-28] MEDS: LOSARTAN POTASSIUM 50 MG TABLET PO ×2 (08:34→11:23)
[2023-09-28] MEDS: MAGNESIUM SULF 2 GM/WATER 50ML 2 GM/50 ML BAG IVPB (08:34)
[2023-09-28] MEDS: POTASSIUM CHLORIDE 20 MEQ ER TABLET PO (09:35)
--- NOTE | 2023-09-28 10:22 | PM.IMPN ---
Progress Note: A&P Assessment and Plan (1) Lung infiltrate: Code(s): R91.8 - Other nonspecific abnormal finding of lung field Status: Acute Assessment and Plan: Chest x-ray on admission shows left lobe airspace disease. Concern for pneumonia so started on Rocephin and azithromycin. Blood cultures no growth to date COVID, influenza, RSV negative He already has completed 5 days of Zithromax and so will stop this Chest x-ray 09/26 was clear. Repeat chest x-ray today again showing clear lungs. Stop Rocephin (2) Rhabdomyolysis: Qualifiers: Rhabdomyolysis type: non-traumatic Qualified Code(s): M62.82 - Rhabdomyolysis Code(s): M62.82 - Rhabdomyolysis Status: Acute Assessment and Plan: He the patient complains with spasm and arm pain on admission. A total CK was elevated on admission and climbed to 15.7 K. he has been started on IV fluids. Levels are trending downward. UDS negative. Lasix today. Repeat urinalysis tomorrow. If no myoglobin in the urine, plan discharge. (3) Hypocalcemia: Code(s): E83.51 - Hypocalcemia Status: Acute Assessment and Plan: Hypercalcemia noted on admission with a calcium level 6. Hypocalcemia not uncommon due to rhabdomyolysis. However calcium level was not changed. Low calcium causing the rhanbdo? Have or check intact PTH, phosphorus, vitamin-D and iCa. Replace calcium (4) Hypomagnesemia: Code(s): E83.42 - Hypomagnesemia Status: Acute Assessment and Plan: Mag low as well which could be related to low PTH or VitD. As abvoe Replace and monitor. (5) Hypertension: Qualifiers: Hypertension type: unspecified Qualified Code(s): I10 - Essential (primary) hypertension Code(s): I10 - Essential (primary) hypertension Status: Acute Assessment and Plan: Patient's blood pressure was reviewed on 09/28 Blood pressure better controlled. Will continue to monitor. Advance Cozaar (6) Electrolyte imbalance: Code(s): E87.8 - Other disorders of electrolyte and fluid balance, not elsewhere classified Status: Acute Assessment and Plan: Poatassium low still Related to persistent Plan Elevated LFTs - AST/ALT elevated felt related to rhabdo. Levels trending down Bradycardia - not felt to be clinically significant. Appreciate cards input. Stop tele. check apnea link DVT Prophylaxis - Lovenox Code status - Full Subjective Date/time seen: 09/28/23 10:22 Interval history: 38yo healthy male here for bilateral UE spasms. Assuming care. Chart reviewed. No further arm pain. No recent viral symptoms prior to admission. No CP or SOB. Slept well last night. No leg /arm edema. Exam Narrative: AF 98.1 153/81 57 18 100% ra Gen - NARD Chest - CTA bilaterally, nml RR CV - RRR S1/S2. Tele showing no significant dysrhythmias Abd - Soft, NT/ND, Positive BS Ext - No pedal edema. no swelling in the extremities Neuro - Alert and oriented. Nonfocal exam. Psych - Nml mood and affect Skin - Warm and dry Objective Data Vital Signs Vital Signs: Vital Signs - 24 hr 09/27/23 12:00 09/27/23 15:30 09/27/23 16:00 Temperature 98.1 F Pulse Rate 81 68 79 Respiratory Rate 18 Blood Pressure 152/94 H Pulse Oximetry 100 Oxygen Delivery 09/27/23 20:00 09/27/23 22:00 09/27/23 20:00 Temperature 97.4 F L Pulse Rate 58 L 60 Respiratory Rate 18 Blood Pressure 164/85 H Pulse Oximetry 100 Oxygen Delivery Room Air 09/28/23 00:00 09/28/23 04:00 09/28/23 06:00 Temperature 98.1 F Pulse Rate 57 L 70 66 Respiratory Rate 18 Blood Pressure 153/81 H Pulse Oximetry 100 Oxygen Delivery 09/28/23 08:03 09/28/23 08:03 Temperature Pulse Rate 57 L 57 L Respiratory Rate 18 Blood Pressure Pulse Oximetry 100 Oxygen Delivery Room Air Intake/Output Intake/Output: Intake & Output 09/25/23 09/26/23
--- NOTE | 2023-09-28 10:23 | PM.CNCAR ---
Assessment and Plan Assessment and plan (1) Electrolyte imbalance: Code(s): E87.8 - Other disorders of electrolyte and fluid balance, not elsewhere classified Status: Acute Assessment and Plan: Significant electrolyte disturbance. Replace his potassium, magnesium and calcium. Nephrology evaluation advised. May have a hyper aldosterone state also. Complete workup can be performed as outpatient since he is improving (2) Hypertension: Qualifiers: Hypertension type: unspecified Qualified Code(s): I10 - Essential (primary) hypertension Code(s): I10 - Essential (primary) hypertension Status: Acute Assessment and Plan: Uncontrolled. Consider adding Ravindra, Arb or spironolactone at some point (3) Rhabdomyolysis: Qualifiers: Rhabdomyolysis type: non-traumatic Qualified Code(s): M62.82 - Rhabdomyolysis Code(s): M62.82 - Rhabdomyolysis Status: Acute Assessment and Plan: Improving (4) Bradycardia: Code(s): R00.1 - Bradycardia, unspecified Status: Acute Assessment and Plan: Mild sinus bradycardia was noted on telemetry strips. Unfortunately patient was taken off of telemetry and I cannot review complete monitor but telemetry strips showed very mild sinus bradycardia with heart rates in the 50s. Will check a TSH and free T4 level since these have not been performed but otherwise I do not feel that further cardiac workup is indicated at this point. His bradycardia is not symptomatic History of Present Illness History of Present Illness Consult date/time: 09/28/23 10:23 Requesting physician: Igor Gerard MD Consult reason: Other (Bradycardia) Reason For Visit: Rhabdomyolysis, Hypocalcemia, Hypomagnesemia Narrative: Reason for consultation: Bradycardia Date of service 09/28/2023 Requesting provider: Dr. Gerard History patient is 38-year-old male who came in because of some muscle contraction spasms of his arms associated with pain. He did have significant electrolyte disturbance including low magnesium low calcium low potassium. He was found to be in rhabdomyolysis. He was on telemetry monitoring for unknown reasons but did have some mild bradycardia with heart rates in 50s. He denies any syncope, presyncope, paroxysmal nocturnal dyspnea, orthopnea, edema, chest pain, shortness of breath or palpitation Review of Systems Review of Systems: All systems reviewed & are unremarkable except as noted in HPI and below Constitutional: Constitutional: Reports body ache(s) Eyes: Eyes: Denies blurry vision ENT: Denies Normal hearing present Cardiovascular: Cardiovascular: Denies chest pain Respiratory: Respiratory: Denies chest congestion Gastrointestinal: Gastrointestinal: Denies abdominal pain Genitourinary: Genitourinary: Denies hematuria Musculoskeletal: Musculoskeletal: Denies back pain Integumentary/Breasts: Skin/Breast: Denies dry skin Neurologic: Denies Abnormal speech present Psychiatric: Psychiatric: Denies anxiety Endocrine: Endocrine: Denies excessive sweating Hematologic/Lymphatic: Hematologic/Lymphatic: Denies easy bleeding Allergic/Immunologic: Allergic/Immunologic: Denies GI upset with certain foods PMFSH Past Medical History Medical History History of hypokalemia Family History Family History Mother Cancer Social History Social History Alcohol intake: never Substance use: never Substance use type: does not use Lack of Transportation: No Lack of Food: Never True Current Housing: I Have Housing Concerned About Future Housing: No Difficulty Paying Gas/Electric Bills: No Difficulty Paying for Meds: No Currently Unemployed: No Education: Trade/Vocational Certificate Difficulty w/ Childcare or Family Care: No
[2023-09-28] MEDS: FUROSEMIDE INJ 40 MG/4 ML VIAL 20 MG IV PUSH (11:22)
[2023-09-28] MEDS: CALCIUM GLUCONATE 1,000 MG/10 ML VIAL 1000 MG IV PUSH (11:23)
[2023-09-28 11:35] LABS: Magnesium 1.9 mg/dL (1.6-2.3); Potassium 3.4 mmol/L (3.4-5.0)
[2023-09-28 11:36] LABS: Phosphorus 3.9 mg/dL (2.5-4.5)
[2023-09-28 13:54] LABS: T4 Thyroxine 8.54 ug/dL (5.53-11.0)
[2023-09-28 13:58] LABS: Vitamin D 25 Hydroxy < 12.8 ng/mL
[2023-09-28] MEDS: CHOLECALCIFEROL 1,000 UNITS TABLET 1000 UNITS PO (18:35)
[2023-09-29 05:22] VITALS: BP 144/96; PULSE 62; RESP 14; TEMP 36.4; O2SAT 99
[2023-09-29] MEDS: SODIUM CHLORIDE 0.9% IV 1,000 ML 125 ML IV CONT (06:22)
[2023-09-29 06:49] LABS: Alanine Aminotransferase 60 U/L (6-50); Albumin Level 4.3 g/dL (3.5-5.1); Alkaline Phosphatase 99 U/L (38-126); Anion Gap 7 mmol/L (8-16); Aspartate Amino Transferase 57 U/L (17-59); Bilirubin,Total 1.2 mg/dL (0.2-1.3); Blood Urea Nitrogen 6 mg/dL (9-20); Calcium 6.2 mg/dL (8.4-10.2); Carbon Dioxide 30 mmol/L (22-30); Chloride 102 mmol/L (98-107); Estimated CRCL calculation 130 ml/min; Estimated Glomerular Filt Rate > 60; Glucose 90 mg/dL (65-110); Magnesium 1.2 mg/dL (1.6-2.3); Phosphorus 4.4 mg/dL (2.5-4.5); Potassium 3.2 mmol/L (3.4-5.0); Sodium 139 mmol/L (137-145)
[2023-09-29 07:25] LABS: Creatine Kinase 1391 U/L (55-170)
[2023-09-29] MEDS: POTASSIUM CHLORIDE 20 MEQ ER TABLET 40 MEQ PO (07:37)
[2023-09-29] MEDS: MAGNESIUM SULFATE 3GM/D5W100ML 3 GM/100 ML BAG IVPB (07:37)
[2023-09-29] MEDS: CALCIUM CARBONATE (OSCAL) 500 MG TABLET 1000 MG PO ×3 (07:38→16:13)
[2023-09-29 07:57] LABS: Hepatitis B Surface Antigen Negative (Negative)
[2023-09-29] MEDS: MAGNESIUM OXIDE 400 MG TABLET PO ×2 (08:02→16:13)
[2023-09-29] MEDS: ENOXAPARIN 40 MG/0.4 ML SYRINGE SUB-Q (08:02)
[2023-09-29 08:03] LABS: HAV RESULT Negative (Negative); Hepatitis B Core IgM Result Negative (Negative)
[2023-09-29] MEDS: LOSARTAN POTASSIUM 100 MG TABLET PO (08:03)
[2023-09-29] MEDS: CHOLECALCIFEROL 1,000 UNITS TABLET 1000 UNITS PO (08:03)
[2023-09-29 08:09] VITALS: RESP 16; O2SAT 99
[2023-09-29 08:14] LABS: Hepatitis C Virus Antibody Negative (Negative)
[2023-09-29] MEDS: CALCIUM GLUC 1,000 MG/NS 50 ML 1,000 MG/50 ML BAG 100 MG IVPB (08:53)
[2023-09-29 09:19] LABS: Appearance Urine Clear (Clear); Bilirubin Urine Negative (Negative); Blood Urine Negative (Negative); Color Urine Yellow (Yellow); Glucose Urine UA Negative (Negative); Ketones Urine Negative (Negative); Leukocyte Esterase Ur Negative LEU/UL (NEGATIVE); Nitrate Urine Negative (Negative); Protein Urine Negative (Negative); Specific Grav Ur 1.004 (1.001-1.035); Urobilinogen Urine 0.2 mg/dL (<2.0); pH Urine 7.5 (5.0-9.0)
[2023-09-29 09:23] LABS: Add Urine Microscopic? NO
[2023-09-29] MEDS: POTASSIUM CHLORIDE 20 MEQ ER TABLET PO (09:42)
[2023-09-29 12:12] LABS: Anion Gap 6 mmol/L (8-16); Blood Urea Nitrogen 6 mg/dL (9-20); Calcium 6.4 mg/dL (8.4-10.2); Carbon Dioxide 31 mmol/L (22-30); Chloride 101 mmol/L (98-107); Estimated CRCL calculation 130 ml/min; Estimated Glomerular Filt Rate > 60; Glucose 114 mg/dL (65-110); Magnesium 1.7 mg/dL (1.6-2.3); Potassium 3.4 mmol/L (3.4-5.0); Sodium 138 mmol/L (137-145)
[2023-09-29 14:00] VITALS: BP 146/92; PULSE 61; RESP 18; TEMP 36.7; O2SAT 100
--- NOTE | 2023-09-29 14:40 | PM.DS ---
DS: Admitting Diagnosis Discharge Date 09/29/23 Admitting Diagnosis Bilateral UE spasms. DS: Discharge Diagnosis Discharge Diagnosis (1) Lung infiltrate: Code(s): R91.8 - Other nonspecific abnormal finding of lung field Status: Acute (2) Rhabdomyolysis: Qualifiers: Rhabdomyolysis type: non-traumatic Qualified Code(s): M62.82 - Rhabdomyolysis Code(s): M62.82 - Rhabdomyolysis Status: Acute (3) Hypocalcemia: Code(s): E83.51 - Hypocalcemia Status: Acute (4) Hypomagnesemia: Code(s): E83.42 - Hypomagnesemia Status: Acute (5) Hypertension: Qualifiers: Hypertension type: unspecified Qualified Code(s): I10 - Essential (primary) hypertension Code(s): I10 - Essential (primary) hypertension Status: Acute (6) Electrolyte imbalance: Code(s): E87.8 - Other disorders of electrolyte and fluid balance, not elsewhere classified Status: Acute (7) Elevated LFTs: Code(s): R79.89 - Other specified abnormal findings of blood chemistry Status: Acute (8) Bradycardia: Code(s): R00.1 - Bradycardia, unspecified Status: Acute (9) Apnea: Code(s): R06.81 - Apnea, not elsewhere classified Status: Acute DS: Summary Hospital Course Reason for hospitalization: 38yo healthy male here for bilateral UE spasms. Please see H&P for details Hospital Course: Patient presents with complaints of upper extremity muscle spasm and arm pain.? A total CK was elevated on admission and climbed to 15.7K. UA showing 2+ blood. He was started on IV fluids.? CK levels trended downward. UDS negative. LFTs elevated flet related to the rhabdomyolysis. Hepatitis panel was negative. CXR on admission shows left lobe airspace disease with concern for pneumonia so started on Rocephin and azithromycin. He completed 5 days of both abx. BCx no growth to date. COVID, influenza, RSV PCR negative. Repeat CXR was clear.?TSH normal. Hypocalcemia noted on admission with a calcium level 6.? Hypocalcemia not uncommon due to rhabdomyolysis but may have been the cause of the rhabdomyolysis as well.? Intact PTH is elevated as expected. Phosphorus remained normal. Vit-D level was low. We replaced his calcium IV and orally. He was started on VitD. Mag level was low as well which could be related to low VitD. Magnesium also replaced. Potassium also was low at times requiring replacement. Other lab values ordered such as renin and amber but are pending. Patient also with mild bradycardia at times. Apnea link was positive and it was recommended that he have a sleep study as outpatient. Patient's blood pressure was markedly elevated on admission to 241/92. Some of this related to pain but felt he had underlying HTN. He was started on Cozaar and his BP improved. His repeat UA was negative for blood. He overall did well and was able to be discharged home on 09/29/23. Status at Discharge Cognitive/behavioral status at discharge: stable Time Spent with Patient Time attestation: Total time spent providing and/or coordinating discharge services: 35 minutes Time spent: Greater than 30 minutes Exam Narrative: AF 98.1 146/92 61 18 100% ra Gen - NARD Chest - CTA bilaterally, nml RR CV - RRR S1/S2 Abd - Soft, NT/ND, Positive BS Ext - No pedal edema Psych - Nml mood and affect Skin - Warm and dry DS: Data Data Completed and Pending Labs on day of discharge: Labs from last 24 hours 09/29/23 09/29/23 09/29/23 11:48 09:00 06:16 Sodium 138 139 Potassium 3.4 3.2 L Chloride 101 102 Carbon Dioxide 31 H 30 Anion Gap 6 L 7 L BUN 6 L 6 L Creatinine 0.80 0.80 Estim Creat Clear Calc 130 130 Estimated GFR > 60 > 60 Glucose 114 H 90 Calcium 6.4 L 6.2 L Phosphorus 4.4 Magnesium 1.7 1.2 L Total Bilirubin 1.2 AST 57 ALT 60 H Alkaline Phosphatase 99 Total Creatine Kinase 1391 H Total
[2023-09-30 21:34] LABS: Ionized Calcium 3.7 mg/dL (4.7-5.5)
[2023-10-01 13:37] LABS: Calcium/Creatinine Ratio, Ur 735 mg/g creat (10-240); Urine Calcium, Random 6.1 mg/dL (***)
[2023-10-02 00:02] LABS: Vitamin D 1,25 (OH)2 Total 23 pg/mL (18-72); Vitamin D2 1,25 (OH)2 <8 pg/mL; Vitamin D3 1,25 (OH)2 23 pg/mL
[2023-10-02 13:49] LABS: PRA 2.51 ng/mL/h (0.25-5.82)
[2023-10-14 14:00] LABS: Urine Creatinine, Random 8 mg/dL
== END 2023-09-29 16:20 | disposition home or self-care (01) | DRG 557 ==
LOC: ANHED 20:18 → ANH3MEDSUR 20:28 → ANH2MED 20:52
PROVIDERS: Emergency Medicine; Family Medicine; Internal Medicine; Internal Medicine Cardiovascular Disease; Physician Assistant; Admitting Provider Internal Medicine; Emergency Provider Physician Assistant; Visit Provider Internal Medicine
DX: M62.82 Rhabdomyolysis (principal); J18.9 Pneumonia, unspecified organism; E83.42 Hypomagnesemia; E83.51 Hypocalcemia; E87.6 Hypokalemia; I10 Essential (primary) hypertension; R00.1 Bradycardia, unspecified; Z20.822 Contact with and (suspected) exposure to COVID-19
CPT/HCPCS: 36415; 70450; 71046; 76775; 80048; 80053; 80074; 80307; 81001; 81003; 82088; 82306; 82310; 82330; 82550; 82570; 82652; 83735; 83970; 84100; 84132; 84244; 84436; 84443; 85025; 87040; 87637; 93005; 94762; 96361; 96365; 96367; 96375; 99285; A9270; G0378; J0360; J0456; J0612; J0696; J1650; J1940; J3360; J3475; J3480; J7030; J7040